=== PATIENT | female | born 2000 | race Caucasian/White ===

== ENCOUNTER 2022-07-05 18:45 | Emergency (ER) | payer MEDICAID ==
[~2022-07-05] VITALS: Ht 160 cm; Wt 54.4 kg
[2022-07-05 20:13] VITALS: BP_SYST 126
--- NOTE | 2022-07-05 20:16 | NUR ---
Patient triaged and placed in waiting room. VS CHECKED and patient appears in no acute distress at this time. Accompanied by SELF, awaiting available bed, and MD notified of need for MSE.
--- NOTE | 2022-07-06 01:53 | NUR ---
Patient left without being seen by MD after triage.
== END 2022-07-06 01:53 | disposition left against medical advice (07) ==
LOC: SED 18:45
DX: N32.89 Other specified disorders of bladder (principal); Z53.21 Procedure and treatment not carried out due to patient leaving prior to being seen by health care provider